=== PATIENT | female | born 1960 | race Caucasian/White ===

== ENCOUNTER 2018-07-27 00:45 | Outpatient (CLI) | payer BC, SELFPAY ==
--- NOTE | 2018-07-27 16:39 | DI.MAMMO_ITS ---
SYMPTOMS/DIAGNOSIS: SCREENING, [facility], Z00.00 BILATERAL SCREENING MAMMOGRAM: Mammograms were interpreted according to the usual protocol including computer analysis with CAD system, tomosynthesis and C view imaging. Comparison is made with exams from 2012 through 2017. The breasts are composed of heterogeneously dense fibroglandular tissue, breast density category C. There is a new circumscribed nodule seen in the lateral left breast. It measures approximately 7 mm in diameter. No suspicious abnormality or change is seen in the right breast. IMPRESSION: Right breast category 1, negative. Left breast category 0. Spot compression views and ultrasound are requested for further evaluation of a new circumscribed nodule in the lateral posterior left breast. MQSA ASSESSMENT OF FINDINGS: Incomplete: Needs additional imaging evaluation. Category 0. Patient will receive a letter notifying them of these results. MQSA ASSESSMENT OF FINDINGS: Negative. Category 1. Patient will receive a letter notifying them of these results. Bi-RADS category C. The breasts are heterogeneously dense, which may obscure small masses.
== END 2018-07-27 01:05 ==
PROVIDERS: PCP Family Medicine; Visit Provider Family Medicine
DX: Z00.00 Encounter for general adult medical examination without abnormal findings (principal); Z12.31 Encounter for screening mammogram for malignant neoplasm of breast; R92.8 Other abnormal and inconclusive findings on diagnostic imaging of breast
CPT/HCPCS: 77063; 77067

== ENCOUNTER 2018-08-03 07:06 | Outpatient (CLI) | payer BC, SELFPAY ==
--- NOTE | 2018-08-03 09:57 | DI.COMBO_ITS ---
SYMPTOM/DIAGNOSIS: F/U MAMMO, NEW NODULE LEFT BREAST ADDITIONAL VIEWS AND LEFT BREAST ULTRASOUND: Additional images are interpreted according to the usual protocol including tomosynthesis and 2D imaging. Additional views again show a partially obscured but well circumscribed, ovoid nodule in the upper outer quadrant of the left breast at about the 3 o'clock position. No associated microcalcifications are seen. Breast density, category C. A left breast ultrasound was performed. At the 3 o'clock position of the left breast sonographically, there is a radially oriented anechoic, well circumscribed nodule without blood flow. It appears to correspond in location and size to the mammographic abnormality and is consistent with a cyst. IMPRESSION: No evidence for malignancy. Left breast cyst seen sonographically and corresponding to the mammographic abnormality. No definite evidence for malignancy. Yearly mammography is recommended. Category 2. The findings were discussed with the patient on the date of the examination. MQSA ASSESSMENT OF FINDINGS: Negative with benign findings. Category 2. Patient will receive a letter notifying them of these results. Bi-RADS category C. The breasts are heterogeneously dense, which may obscure small masses.
== END 2018-08-03 07:26 ==
PROVIDERS: PCP Family Medicine; Visit Provider Family Medicine
DX: Z12.31 Encounter for screening mammogram for malignant neoplasm of breast (principal); R92.8 Other abnormal and inconclusive findings on diagnostic imaging of breast; N60.02 Solitary cyst of left breast
CPT/HCPCS: 76642; 77063; 77067

== ENCOUNTER 2018-11-15 15:03 | Outpatient (CLI) | payer BC, SELFPAY ==
--- NOTE | 2018-11-15 15:35 | DI.US_ITS ---
SYMPTOM/DIAGNOSIS: GALLBLADDER POLYPS, K82.4 ABDOMEN ULTRASOUND: Comparison is made with 07/19/17. Two mobile gallstones are now seen. There has been no change in non shadowing, small gallbladder polyps. No gallbladder wall thickening or pericholecystic fluid is seen. There is no biliary dilatation. The liver is normal in size and echogenicity. The spleen, kidneys and aorta are unremarkable. IMPRESSION: Stable small gallbladder polyps. New cholelithiasis.
== END 2018-11-15 15:23 ==
LOC: NCHCO 15:05 → DI 15:11
PROVIDERS: PCP Family Medicine; Visit Provider Family Medicine
DX: K82.4 Cholesterolosis of gallbladder (principal); K80.20 Calculus of gallbladder without cholecystitis without obstruction
CPT/HCPCS: 76700

== ENCOUNTER 2019-06-27 12:07 | Outpatient (REF) | payer BC, SELFPAY ==
--- NOTE | 2019-06-27 09:15 | PAPFT_PTH ---
PATIENT: Kassy Collado LOC: [facility]#:[id number] AGE/SX: 58/F ROOM: RE06/27/[address]: Misty Mayo V : 1960 BED: DIS: 06/27/2019 SPEC #: [id number] RECD: 06/28/19 12:55 STATUS: ROBERT RAMSEY #: [id number] JENNIE: 06/27/19 09:[address]: Misty Mayo V DEPT: [facility] Cytology RECD BY: Radha Harrell Tissues: 1 - CX/ENDOCX FOR PAP SMEARS Procedures: PAP THIN PREP/UVM Screening HPV DNA PROBE Comments: [id number]
== END 2019-06-27 12:27 ==
LOC: NCHCN 12:07
PROVIDERS: PCP Family Medicine; Visit Provider Family Medicine
DX: Z12.4 Encounter for screening for malignant neoplasm of cervix (principal); Z11.51 Encounter for screening for human papillomavirus (HPV); Z01.419 Encounter for gynecological examination (general) (routine) without abnormal findings
CPT/HCPCS: 88142; 87624

== ENCOUNTER 2019-08-07 01:04 | Outpatient (CLI) | payer BC, SELFPAY ==
--- NOTE | 2019-08-07 16:10 | DI.MAMMO_ITS ---
EXAM: MAMMO SCREENING CLINICAL HISTORY: SCREENING, Z12.31, [facility], Z00.00 TECHNIQUE: Mammograms were interpreted according to the usual protocol including computer analysis w [employer] CAD system, tomosynthesis and C-view imaging. COMPARISON: 2009 through 2017 FINDINGS: The breasts are composed of heterogeneously dense fibroglandular densities, Breast Density category C . No suspicious masses or suspicious microcalcifications are seen. No skin thickening or abnormal axillary lymph nodes are seen. There has been no significant change from prior exams. IMPRESSION: BIRADS Category 1, negative mammogram. Yearly screening mammography is recommended. BI-RADS Cat 1 - Negative Breast Density - Category C - Heterogeneously dense BREAST DENSITY: The mammogram demonstrates the patient's breast tissue is dense. Dense breast tissue is very common and is not abnormal but dense breast tissue can make it harder to find cancer on a ma mmogram. Also, dense breast tissue may increase their breast cancer risk. This information about the result of the mammogram report was provided to the patient to raise their awareness. Use this report when you speak with the patient about their risks for breast cancer, which includes their family hist ory. At that time, you may recommend for more screening tests (Ultrasound or MRI) as they might be us eful based on their risk. A negative radiographic report should not delay biopsy if a dominant or clinically suspicious mass is present. Up to ten percent of cancers are not identified on mammography. A negative report may reinforce clinical impression. Adenosis and dense breasts may obscure an underlying neoplasm. False positive reports average 6 to 10%.
== END 2019-08-07 01:24 ==
PROVIDERS: PCP Family Medicine; Visit Provider Family Medicine
DX: Z12.31 Encounter for screening mammogram for malignant neoplasm of breast (principal); Z00.00 Encounter for general adult medical examination without abnormal findings
CPT/HCPCS: 77063; 77067

== ENCOUNTER 2020-09-03 01:05 | Outpatient (CLI) | payer BC, SELFPAY ==
--- NOTE | 2020-09-03 | DI.US_ITS ---
EXAM: US ABDOMEN CLINICAL HISTORY: GB POLYPS, K82.4 TECHNIQUE: Ultrasound abdomen performed using standard protocol. COMPARISON: No exams were available for comparison FINDINGS: LIVER: Normal size and echogenicity. No focal liver lesions are seen.. GALLBLADDER: Multiple large calcified stones. Previously noted polyps not visualized today, obscured by the stones. No evidence of wall thickening. No pericholecystic fluid identified. GARZA'S SIGN: Negative. BILIARY SYSTEM: No intrahepatic or extrahepatic biliary ductal dilation. KIDNEYS: Kidneys are symmetric in size. No evidence of renal calculi. No evidence of hydronephrosis. No renal mass or cyst identified. PANCREAS: Normal where visualized. SPLEEN: Not enlarged. ABDOMINAL AORTA AND IVC: Visualized portions normal caliber. ASCITES: None seen. IMPRESSION: Cholelithiasis. No evidence of acute cholecystitis or biliary dilatation. The previously noted poly ps are not visualized today. DATA REPOSITORY:
--- NOTE | 2020-09-03 | DI.MAMMO_ITS ---
EXAM: MAMMO SCREENING CLINICAL HISTORY: SCREENING, [facility],Z00.00 TECHNIQUE: Mammograms were interpreted according to the usual protocol including computer analysis w [employer] CAD system, tomosynthesis and C-view imaging. COMPARISON: 2010 through 2018 FINDINGS: The breasts are composed of heterogeneously dense fibroglandular densities, Breast Density category C . No suspicious masses or suspicious microcalcifications are seen. No skin thickening or abnormal axillary lymph nodes are seen. There has been no significant change from prior exams. IMPRESSION: BI-RADS Category 1, Negative mammogram. Yearly screening mammography is recommended. Breast Density Category C, heterogeneously Dense. The mammogram demonstrates the patient's breast tissue is dense. Dense breast tissue is very common a nd is not abnormal but dense breast tissue can make it harder to find cancer on a mammogram. Also, de nse breast tissue may increase breast cancer risk. This information about the result of the mammogram report was provided to the patient to raise their awareness. Use this report when you speak with the patient about their risks for breast cancer, which includes their family history. At that time, you may recommend additional screening tests (Ultrasound or MRI) as they might be useful based on their r isk. A negative radiographic report should not delay biopsy if a dominant or clinically suspicious mass is present. Up to ten percent of cancers are not identified on mammography. A negative report may reinforce clinical impression. Adenosis and dense breasts may obscure an underlying neoplasm. False positive reports average 6 to 10%.
== END 2020-09-03 01:25 ==
PROVIDERS: PCP Family Medicine; Visit Provider Family Medicine
DX: Z12.31 Encounter for screening mammogram for malignant neoplasm of breast (principal); Z00.00 Encounter for general adult medical examination without abnormal findings; K80.20 Calculus of gallbladder without cholecystitis without obstruction
CPT/HCPCS: 77063; 77067; 76700

== ENCOUNTER 2021-07-01 14:59 | Outpatient (REF) | payer BC, SELFPAY ==
[2021-07-02 00:18] LABS: BUN 14 mg/dL (7-18); CREATININE 0.9 mg/dL (0.55-1.02); Calcium 8.6 mg/dL (8.5-10.1); Calculated LDL 93 mg/dL (<100); Cholesterol 167 mg/dL (<200); Glucose 76 mg/dL (74-106); HDL Cholesterol 58 mg/dL (40-60); Sodium 143 mmol/L (136-145); Triglyceride 84 mg/dL (<150)
[2021-07-02 00:19] LABS: Anion Gap 9.1 mmol/L (3-11); CO2 28.9 mmol/L (21.0-32.0); Chloride 105 mmol/L (98-107); Potassium 4.1 mmol/L (3.5-5.1); TSH (W/Ref FT4) 0.83 uIU/mL (0.36-3.74)
== END 2021-07-01 15:00 | disposition home or self-care (01) ==
LOC: NCHCN 14:59
PROVIDERS: PCP Family Medicine; Visit Provider Internal Medicine
DX: Z00.00 Encounter for general adult medical examination without abnormal findings (principal); R25.2 Cramp and spasm; Z13.220 Encounter for screening for lipoid disorders
CPT/HCPCS: 80048; 80061; 84443

== ENCOUNTER 2022-01-09 09:19 | Outpatient (REF) | payer BC, SELFPAY ==
[2022-01-09 16:18] LABS: Hemoglobin A1C 5.4 % (<5.7)
[2022-01-09 16:35] LABS: TSH (W/Ref FT4) 1.13 uIU/mL (0.36-3.74); Vitamin B12 512 pg/mL (193-986)
== END 2022-01-09 09:20 | disposition home or self-care (01) ==
LOC: NCHCN 09:19
PROVIDERS: PCP Family Medicine; Visit Provider Family Medicine
DX: G62.9 Polyneuropathy, unspecified (principal)
CPT/HCPCS: 82607; 83036; 84443

== ENCOUNTER → 2022-02-05 02:35 | Outpatient (CLI) | payer BC, SELFPAY ==
--- NOTE | 2022-02-05 12:30 | DI.MAMMO_ITS ---
Exam(s) MAMMO SCREENING EXAM: MAMMO SCREENING CLINICAL HISTORY: SCREENING, Z12.31. TECHNIQUE: Bilateral full field digital CC and MLO mammographic images were obtained with 3D tomosyn thesis and utilizing computer aided detection (CAD). COMPARISON: Prior mammograms were reviewed, the most recent being August 2020. FINDINGS: Glandular tissue pattern is again noted to be moderately dense, this somewhat decreasing the sensitiv ity of the mammogram for finding hidden underlying lesions There are no new spiculated masses nor malignant appearing microcalcification groups. Benign-appearing microcalcification group in the right breast is unchanged There is no significant architectural distortion nor skin thickening-retraction. IMPRESSION: Dense bilateral fibroglandular tissue. No obvious radiographic evidence of malignancy nor significan t change compared to prior exams listed above. BI-RADS Category 2 - Benign Findings Breast Density - Category C - Heterogeneously dense Breast density Category C or D implies that the patient has dense breast tissue. Dense breast tissue can make it harder to find cancer on a mammogram. Dense breast tissue is also associated with an incr eased risk of breast cancer. This information about the result of the mammogram report was provided to the patient to raise their awareness. Use this report when you speak with the patient about their risks for breast cancer, which includes their family history. At that time, you may recommend additional screening tests (Ultrasoun d or MRI) as these tests may add significant information. A negative radiographic report should not delay biopsy if a dominant or clinically suspicious mass is present. Up to ten percent of cancers are not identified on mammography. A negative report may reinforce clinical impression. Adenosis and dense breasts may obscure an underlying neoplasm. False positive reports average 6 to 10%. Patient will receive a letter notifying them of these results.
== END ==
PROVIDERS: PCP Family Medicine; Visit Provider Family Medicine
DX: Z12.31 Encounter for screening mammogram for malignant neoplasm of breast (principal)
CPT/HCPCS: 77063; 77067

== ENCOUNTER → 2022-05-11 12:51 | Outpatient (CLI) | payer BC, SELFPAY ==
--- NOTE | 2022-05-11 13:44 | DI.RAD_ITS ---
Exam(s) XR KNEE LT 3V AP,LAT,KRYSTINA EXAM: XR KNEE LT 3V AP,LAT,KRYSTINA CLINICAL HISTORY: KNEE SWELLING M25.469. TECHNIQUE: 2D digital imaging was performed. Three views. COMPARISON: No exams were available for comparison FINDINGS: BONES: No acute fracture is present. No bony destructive lesion is seen. JOINTS: The knee is normally aligned. No joint effusion is seen. Joint spaces are well maintained. Mild periarticular spurring. SOFT TISSUE: Varicosities medial soft tissues. IMPRESSION: Venous varicosities. Mild degenerative changes. DATA REPOSITORY: RADIATION DOSE DELIVERED:
== END ==
PROVIDERS: PCP Family Medicine; Visit Provider Family Medicine
DX: M25.562 Pain in left knee (principal); I86.8 Varicose veins of other specified sites; M25.462 Effusion, left knee
CPT/HCPCS: 73562

== ENCOUNTER → 2022-07-24 00:58 | Outpatient (CLI) | payer BC, SELFPAY ==
--- NOTE | 2022-07-24 13:55 | DI.DEXA_ITS ---
Exam(s) XR DEXA BONE DENSITY W/WO MATIAS EXAM: XR DEXA BONE DENSITY W/WO MATIAS CLINICAL HISTORY: MENOPAUSAL Z78.0 [facility] Z00.00 SCREENING FOR OSTEOPOROSIS TECHNIQUE: [employer] C densitometer analysis of left hip, lumbar spine and left forearm. COMPARISON: No exams were available for comparison FINDINGS: Lateral view of the thoracic and lumbar spine shows no evidence of compression fractures. Bone mineral density measurements of the lumbar spine correspond to a total T-score of -2.1, in the osteopenic range. Bone mineral density measurements of the left hip correspond to a total T-score of -1.7. The femora l neck T-score is -2.3, in the osteopenic range.. The left forearm bone mineral density measurements correspond to a T-score of the distal 3rd of -2.7 , in the osteoporotic range.. IMPRESSION: Osteopenia of the lumbar spine and left hip. Osteoporosis left forearm.
== END ==
PROVIDERS: PCP Family Medicine; Visit Provider Family Medicine
DX: Z13.820 Encounter for screening for osteoporosis (principal); Z78.0 Asymptomatic menopausal state; M85.89 Other specified disorders of bone density and structure, multiple sites; M81.0 Age-related osteoporosis without current pathological fracture
CPT/HCPCS: 77080

== ENCOUNTER 2023-01-25 15:41 | Outpatient (CLI) | payer BC, SELFPAY ==
--- NOTE | 2023-01-25 15:15 | DI.RAD_ITS ---
Exam(s) XR FOOT LT COMPLETE EXAM: XR FOOT LT COMPLETE CLINICAL HISTORY: SUDDEN ONSET OF LT FOOT PAIN AND SWELLING, M79.672. TECHNIQUE: 2D digital imaging was performed of the left foot. Three images were obtained. AP, obli que and lateral views were obtained. COMPARISON: No exams were available for comparison FINDINGS: BONES: No acute fracture is present. No bony destructive lesion is seen. Postsurgical changes are see n in the 1st metatarsal. There is a hallux valgus deformity. JOINTS: No dislocation present. Mild degenerative changes are seen at the 1st MTP joint characterized by joint space narrowing and bony hypertrophy. SOFT TISSUE: Normal. IMPRESSION: Degenerative and postsurgical changes of the left foot. No acute abnormality. DATA REPOSITORY: RADIATION DOSE DELIVERED:
== END 2023-06-09 13:45 ==
PROVIDERS: PCP Family Medicine; Visit Provider Family Medicine
DX: M19.072 Primary osteoarthritis, left ankle and foot (principal); Z98.890 Other specified postprocedural states; R22.42 Localized swelling, mass and lump, left lower limb
CPT/HCPCS: 73630

== ENCOUNTER 2023-07-08 16:03 | Outpatient (REF) | payer BC, SELFPAY ==
[2023-07-08 17:11] LABS: Calculated LDL 102 mg/dL (<100); Cholesterol 190 mg/dL (<200); HDL Cholesterol 70 mg/dL (40-60); Triglyceride 92 mg/dL (<150)
== END 2023-07-08 16:04 | disposition home or self-care (01) ==
LOC: NCHCN 16:03
PROVIDERS: PCP Family Medicine; Visit Provider Family Medicine
DX: Z00.00 Encounter for general adult medical examination without abnormal findings (principal); Z13.220 Encounter for screening for lipoid disorders
CPT/HCPCS: 80061

== ENCOUNTER → 2023-08-02 02:23 | Outpatient (CLI) | payer BC, SELFPAY ==
--- NOTE | 2023-08-02 | DI.MAMMO_ITS ---
Exam(s) MAMMO SCREENING EXAM: MAMMO SCREENING CLINICAL HISTORY: Z12.31 Screening TECHNIQUE: Bilateral full field digital CC and MLO mammographic images were obtained with 3D tomosyn thesis and utilizing computer aided detection (CAD). COMPARISON: Available for comparison. FINDINGS: Masses/Architectural Distortion: There are stable well-circumscribed nodules in the upper outer quadr ant of the right breast. No suspicious nodules or areas of architectural distortion are seen. Microcalcifications: No suspicious pleomorphic-type are seen. Skin Thickening/Nipple Retraction: None. IMPRESSION: 1. No significant interval change with no specific features of malignancy noted. 2. Unless there is more urgent need, screening mammography is recommended, as per [employer] guidelines. BI-RADS Category 2 - Benign Findings Breast Density - Category C - Heterogeneously dense Breast density category C or D implies that the patient has dense breast tissue. Dense breast tissue is very common and is not abnormal but dense breast tissue can make it harder to find cancer on a ma mmogram. Also, dense breast tissue may increase their breast cancer risk. This information about the result of the mammogram report was provided to the patient to raise their awareness. Use this report when you speak with the patient about their risks for breast cancer, which includes their family hist ory. At that time, you may recommend for more screening tests (Ultrasound or MRI) as they might be us eful based on their risk. A negative radiographic report should not delay biopsy if a dominant or clinically suspicious mass is present. Up to ten percent of cancers are not identified on mammography. A negative report may reinforce clinical impression. Adenosis and dense breasts may obscure an underlying neoplasm. False positive reports average 6 to 10%. Patient will receive a letter notifying them of these results.
== END ==
PROVIDERS: PCP Family Medicine; Visit Provider Family Medicine
DX: Z12.31 Encounter for screening mammogram for malignant neoplasm of breast (principal)
CPT/HCPCS: 77063; 77067

== ENCOUNTER 2024-08-22 01:20 | Outpatient (CLI) | payer BC, SELFPAY ==
--- NOTE | 2024-08-22 12:08 | DI.MAMMO_ITS ---
Exam(s) MAMMO SCREENING EXAM: MAMMO SCREENING CLINICAL HISTORY: SCREENING, Z12.31. TECHNIQUE: Bilateral full field digital CC and MLO mammographic images were obtained with 3D tomosyn thesis and utilizing computer aided detection (CAD). COMPARISON: Prior mammograms were reviewed. FINDINGS: There has been no significant change in the appearance and distribution of the fibroglandular tissue which is again noted be moderately dense. There are 2 stable benign-appearing nodules posteriorly in the right breast which are most probably b enign intramammary lymph nodes. There are no new spiculated masses nor new malignant appearing microcalcification groups. There is no significant architectural distortion nor skin thickening-retraction. IMPRESSION: Stable benign findings. No radiographic evidence of malignancy. BI-RADS Category 2 - Benign Findings Breast Density - Category C - Heterogeneously dense Breast density Category C or D implies that the patient has dense breast tissue. Dense breast tissue can make it harder to find cancer on a mammogram. Dense breast tissue is also associated with an incr eased risk of breast cancer. This information about the result of the mammogram report was provided to the patient to raise their awareness. Use this report when you speak with the patient about their risks for breast cancer, which includes their family history. At that time, you may recommend additional screening tests (Ultrasoun d or MRI) as these tests may add significant information. A negative radiographic report should not delay biopsy if a dominant or clinically suspicious mass is present. Up to ten percent of cancers are not identified on mammography. A negative report may reinforce clinical impression. Adenosis and dense breasts may obscure an underlying neoplasm. False positive reports average 6 to 10%. Patient will receive a letter notifying them of these results.
== END 2024-08-22 01:40 ==
LOC: DI 01:20
PROVIDERS: PCP Family Medicine; Visit Provider Family Medicine
DX: Z12.31 Encounter for screening mammogram for malignant neoplasm of breast (principal); R92.333 Mammographic heterogeneous density, bilateral breasts; D24.1 Benign neoplasm of right breast
CPT/HCPCS: 77063; 77067

== ENCOUNTER 2025-02-22 01:57 | Outpatient (CLI) | payer BC, SELFPAY ==
--- NOTE | 2025-02-22 | DI.MAMMO_ITS ---
Exam(s) US BREAST LT COMPLETE MG MAMMO DIAGNOSTIC UNI EXAM: MG MAMMO DIAGNOSTIC UNI-LEFT AND COMPLETE LEFT BREAST ULTRASOUND CLINICAL HISTORY: Lump in UOQ, lt breast, N63.21. TECHNIQUE: Unilateral CC AND MLO mammographic images were obtained with 3D tomosynthesis technique and utilizing computer aided detection (CAD). Also performed spot compression MLO view the left breast. Complete left breast ultrasound was performed including all 4 quadrants as well as the axillary regions. COMPARISON: Prior mammograms were reviewed, the most recent being July 2024.. This 64-year-old patient feels a new lump at the 11-12 o'clock position of the left breast FINDINGS: DIAGNOSTIC LEFT BREAST MAMMOGRAM: The fibroglandular tissue pattern is moderately dense. There is a subtle area of asymmetric density with very subtle architectural distortion evident on the spot compression view at approximately the 12 o'clock position left breast. There are no malignant-appearing microcalcification groups in this region nor elsewhere in the left breast. There is no skin thickening-retraction. COMPLETE LEFT BREAST ULTRASOUND: At the 12 o'clock position there is a concerning solid nodular density measuring approximately 7x 6 mm and exhibiting decreased through transmission. This is suspicious for neoplasm and appears correspond to the finding on the mammogram. At the 2 o'clock position there is a 6 millimeter benign microcyst. Also at 2 o'clock position is a smaller 3 mm microcyst. No other findings in all 4 quadrants. Scanning of the left axilla exhibits normal appearing lymph nodes. IMPRESSION: At the 12 o'clock position of the left breast there is the nodule which is suspicious for malignancy. Ultrasound-guided core biopsy is recommended Findings and recommendations were discussed by myself with the patient today. Findings and recommendations were also discussed by myself by phone with Dr. Misty Pereyra today (02/22/2025 at 10:55 a.m.) BI-RADS Category 4 - Suspicious Abnormality: Biopsy should be considered Breast Density - Category C - The breast are heterogeneously dense, which may obscure small masses. Breast density Category C or D implies that the patient has dense breast tissue. Dense breast tissue can make it harder to find cancer on a mammogram. Dense breast tissue is also associated with an increased risk of breast cancer. This information about the result of the mammogram report was provided to the patient to raise their awareness. Use this report when you speak with the patient about their risks for breast cancer, which includes their family history. At that time, you may recommend additional screening tests (Ultrasound or MRI) as these tests may add significant information. A negative radiographic report should not delay biopsy if a dominant or clinically suspicious mass is present. Up to ten percent of cancers are not identified on mammography. A negative report may reinforce clinical impression. Adenosis and dense breasts may obscure an underlying neoplasm. False positive reports average 6 to 10%. Patient will receive a letter notifying them of these results.
== END 2025-02-22 02:17 ==
LOC: DI 01:58
PROVIDERS: PCP Family Medicine; Visit Provider Family Medicine
DX: N63.21 Unspecified lump in the left breast, upper outer quadrant (principal); Z12.31 Encounter for screening mammogram for malignant neoplasm of breast
CPT/HCPCS: 76642; 77061; 77065; G0279

== ENCOUNTER 2025-02-27 18:00 | Outpatient (REF) | payer BC, SELFPAY ==
--- NOTE | 2025-02-27 14:30 | SKI_PTH ---
PATIENT: Kassy Collado LOC: [facility]#:[id number] AGE/SX: 64/F ROOM: RE02/27/[address]: Misty Mayo V : 1960 BED: DIS: 02/27/2025 SPEC #: [id number] RECD: 02/28/25 09:34 STATUS: ROBERT REMere #: [id number] JENNIE: 02/27/25 14:[address]: Misty Mayo V DEPT: Surgical Specimen RECD BY: Kassy Schreiber Tissues: 1 - SKIN BIOPSY(SHAVE/PUNCH) Procedures: SKIN LEVEL 4 Comments: [id number]
== END 2025-02-27 18:01 | disposition home or self-care (01) ==
LOC: NCHCN 18:00
PROVIDERS: PCP Family Medicine; Visit Provider Family Medicine
DX: L82.0 Inflamed seborrheic keratosis (principal)
CPT/HCPCS: 88305

== ENCOUNTER 2025-03-30 16:17 | Outpatient (REF) | payer BC, SELFPAY ==
[2025-03-30 19:35] LABS: HCT 35.9 % (36.0-46.0); HGB 11.8 g/dL (11.2-15.7); MCH 28.6 pg (27.0-33.0); MCHC 32.9 % (32.0-36.0); MCV 87 fL (80-95); MPV 9.2 fL (8.0-11.0); Platelet Count 287 10^3/uL (130-400); RBC 4.12 10^6/uL (3.93-5.22); RDW 12.1 % (11.7-14.6); RDW-SD 39.2 fL; WBC 6.47 10^3/uL (4.4-10.8)
[2025-03-30 19:58] LABS: C-Reactive Protein 7.31 mg/dL (<or=0.5)
[2025-03-30 20:00] LABS: TSH < 0.01 uIU/mL (0.36-3.74)
[2025-03-31 22:31] LABS: T3, Total 666 ng/dL (97-169)
== END 2025-03-30 16:18 | disposition home or self-care (01) ==
LOC: NCHCN 16:17
PROVIDERS: PCP Family Medicine; Visit Provider Family Medicine
DX: R09.A2 Foreign body sensation, throat (principal)
CPT/HCPCS: 85027; 84439; 84443; 84480; 86140

== ENCOUNTER 2025-05-14 17:37 | Outpatient (REF) | payer BC, SELFPAY ==
[2025-05-16 12:14] LABS: HSV 1 DNA Result Negative (Negative); HSV 2 DNA Result Negative (Negative)
== END 2025-05-14 17:38 | disposition home or self-care (01) ==
LOC: NCHCN 17:37
PROVIDERS: PCP Family Medicine; Visit Provider Nurse Practitioner Family
DX: N93.9 Abnormal uterine and vaginal bleeding, unspecified (principal)
CPT/HCPCS: 87529

== ENCOUNTER 2025-07-06 08:52 | Outpatient (CLI) | payer BC, SELFPAY ==
[2025-07-06 07:18] LABS: Abs Immature Grans 0.01 10^3/uL (0.0-0.06); HCT 43.7 % (36.0-46.0); HGB 14.6 g/dL (11.2-15.7); Immature Grans % 0.2 %; MCH 28.3 pg (27.0-33.0); MCHC 33.4 % (32.0-36.0); MCV 85 fL (80-95); MPV 8.9 fL (8.0-11.0); Platelet Count 204 10^3/uL (130-400); RBC 5.16 10^6/uL (3.93-5.22); RDW 15.2 % (11.7-14.6); RDW-SD 46.9 fL; WBC 4.27 10^3/uL (4.4-10.8)
[2025-07-06 07:36] LABS: ALT 22 U/L (10-49); AST 28 U/L (<34); Albumin 4.3 g/dL (3.4-5.0); Alkaline Phosphatase 98 U/L (46-116); Anion Gap 7.6 mmol/L (3-11); BUN 14 mg/dL (9-23); Bilirubin, Total 1.00 mg/dL (0.2-1.2); CO2 28.4 mmol/L (20.0-31.0); Calcium 9.3 mg/dL (8.3-10.6); Chloride 106 mmol/L (98-107); Glucose 94 mg/dL (74-106); Potassium 4.2 mmol/L (3.5-5.1); Sodium 142 mmol/L (136-145); Total Protein 7.2 g/dL (5.7-8.2)
[2025-07-06 07:40] LABS: Vitamin D 25 Total 37 ng/mL (30-100)
== END 2025-07-06 08:53 | disposition home or self-care (01) ==
LOC: LBO 08:53
PROVIDERS: PCP Family Medicine; Visit Provider Internal Medicine Hematology & Oncology
DX: C50.412 Malignant neoplasm of upper-outer quadrant of left female breast (principal); Z17.0 Estrogen receptor positive status [ER+]
CPT/HCPCS: 36415; 80053; 82306; 85025

== ENCOUNTER → 2025-07-25 01:22 | Outpatient (CLI) | payer BC, SELFPAY ==
--- NOTE | 2025-07-25 | DI.DEXA_ITS ---
Exam(s) XR DEXA BONE DENSITY W/WO MATIAS EXAM: XR DEXA BONE DENSITY W/WO MATIAS CLINICAL HISTORY: BREAST CA, AROMATASE INHIBITOR, OSTEOPENIA LUMBAR SPINE, M85.88,C50.412 TECHNIQUE: Routine DEXA evaluation of the lumbar spine, hip, or forearm. COMPARISON: CR XR DEXA BONE DENSITY W/WO MATIAS from 07/24/2022 FINDINGS: Performed on a Hologic unit. Lateral image: No compression fracture evident. Lumbar Spine total T-score: -2.4 which is in the osteoporosis range. The prior reading in July 2022 was -2.1 which was osteopenia range at that time Hip total T-score:-2.4 which is osteopenia range. Prior reading in July 2022 was -1.7 Independent reading at the level of the femoral neck yields T-score of -2.4 which is osteopenia range. Prior reading 3 years ago was -2.3. Findings remain in osteopenia range. Forearm total T-score: -3.0 which is osteoporosis range. Prior reading in July 2022 was -2.7 which was also osteoporosis range at that time. IMPRESSION: Bone mineral density measures in the osteoporosis range for the lumbar spine and forearm. Fracture risk is high at these levels. Bone mineral density measures in the osteopenia range for of the hip. Fracture risk at this level is moderate. Note: Any spine fracture indicates 5x risk for subsequent spine fracture and 2x risk for subsequent hip fracture. World Health Organization criteria for BMD interpretation classify patients: Normal...... T- Score at or above -1.0 Osteopenic... T- Score between -1.0 and -2.5 Osteoporosis... T-Score at or below -2.5
== END ==
LOC: DI 01:22
PROVIDERS: PCP Family Medicine; Visit Provider Nurse Practitioner Family
DX: C50.412 Malignant neoplasm of upper-outer quadrant of left female breast (principal); Z17.0 Estrogen receptor positive status [ER+]; Z79.899 Other long term (current) drug therapy; M85.88 Other specified disorders of bone density and structure, other site
CPT/HCPCS: 77080

== ENCOUNTER 2025-08-21 16:26 | Outpatient (CLI) | payer BC, SELFPAY ==
[2025-08-21 17:29] LABS: C-Reactive Protein < 0.50 mg/dL (<=0.50)
== END 2025-08-21 16:27 | disposition home or self-care (01) ==
LOC: LBO 16:26
PROVIDERS: PCP Family Medicine; Visit Provider Family Medicine
DX: E06.1 Subacute thyroiditis (principal)
CPT/HCPCS: 36415; 86140